=== PATIENT | male | born 1960 | race Caucasian/White ===

== ENCOUNTER 2016-12-02 10:59 | Emergency (ER) | payer OTHER ==
[~2016-12-02] VITALS: Ht 180.3 cm; Wt 88.6 kg
[~2016-12-02 10:59] MED LIST: ASPI-351 PO; COR625 PO; GLU500 PO; LIP20 PO; NIA500 PO; OMEP20TA86 PO
[2016-12-02 11:06] VITALS: BP 160/67; PULSE 75; RESP 18; O2SAT 99
[2016-12-02] MEDS ORDERED: HYDROmorphone 1 mg/mL Inj IM ONE (11:10)
--- NOTE | 2016-12-02 11:12 | ED.REPORT ---
HPI-Extremity Problem Lower Date of Service Dec 02, 2016 ED Provider: History of Present Illness: 55-year-old male here for right ankle pain. Just [employer] he fell from a 12 foot ladder. The brunt of the fall landed on his right ankle. He did not hurt anything else. He did not hit his head. He is not on blood thinners. He has been nonweightbearing on his right ankle. no Previous injuries of his ankle. No LOC. NO other musculoskeletal complaints Nursing Notes Stated Complaint: L ANKLE INJURY/ FALL Allergies: Coded Allergies: codeine (Verified Allergy, Unknown, 12/02/16) Scheduled Aspirin-Expunged Drug, Do Not Renew! (Aspirin-Expunged Drug, Do Not Renew!) 325 Mg Tablet 325 MG PO DAILY Atorvastatin-Expunged Drug, Do Not Renew! (Atorvastatin-Expunged Drug, Do Not Renew!) 20 Mg Tablet 80 MG PO HS Carvedilol-Expunged Drug, Do Not Renew! (Carvedilol-Expunged Drug, Do Not Renew! ) 6.25 Mg Tablet 6.25 MG PO BID Metformin-Expunged Drug, Do Not Renew! (Metformin-Expunged Drug, Do Not Renew!) 500 Mg Tablet 500 MG PO HS Niacin-Expunged Drug, Do Not Renew! (Niacor-Expunged Drug, Do Not Renew!) 500 Mg Tablet 500 MG PO DAILY Omeprazole-Expunged Drug, Do Not Renew! (Omeprazole-Expunged Drug, Do Not Renew! ) 20 Mg Tablet.dr 20 MG PO DAILY Scheduled PRN oxyCODONE-Acetaminophen 5-325 mg (oxyCODONE-Acetaminophen 5-325 mg) 1 Each Tablet 1-2 TAB PO Q6H PRN PRN For Pain General Time Seen by MD: 11:05 Chief Complaint Ankle injury right Hx Obtained From: Patient Arrived By: Walk-in Onset Occurred: Just prior to arrival Symptom Duration: Since onset Caused by: Fall from height... (10-20 feet) Context: Occurred at: Home injury Location: : Ankle right Severity: Current: Severe Severity: Maximum: Severe Pertinent Negative: Pt denies other symptoms Exacerbated by: Range of motion Relieved by: Rest Similar Sx Previous: No Review of Systems Review of Systems Note: denies radiculopathy/numbness/tingling Basic Review of Systems Eyes: Vision NL ENT: Hearing NL Respiratory: No shortness of breath Cardiovascular: No chest pain Psychiatric: Normal thought content Musculoskeletal: Reports: Extremity pain, Extremity swelling (R ankle) Complete sys rev & neg: except as marked. Physical Exam Initial Vital Signs Vital Signs (First) Date Time Temp Pulse Resp B/P Pulse Ox O2 Delivery O2 Flow Rate FiO2 12/02/16 11:06 75 18 160/67 99 Initial VS: Reviewed, Vital signs normal General/Constitutional: Well-developed Head / Eyes: Atraumatic Respiratory: Breath sounds normal, Clear to auscultation, No respiratory distress Cardiovascular: Regular rate & rhythm, Heart sounds normal, Intact distal pulses Upper Extremities: Vascular intact, Neuro intact, No swelling, No tenderness Skin: Warm, Dry Neurologic: Alert, Oriented, Nonfocal Psychiatric: Mood/affect normal, Behavior normal, Normal thought content Lower Extremity / Pelvis / MS: Atraumatic, Inspection NL, Full range of motion , No swelling, Non-tender, No erythema, No deformity, Neurologic intact, Vascular intact no pain with palp of the rest of his LE besides his ankle. Right Ankle: Positive: ROM reduced, Swelling present... (Moderate), Tender lat ligaments... (Ant ben-fib lig), Tenderness present... (Moderate) Right Foot: Negative: Swelling present..., Tenderness present... pedal pulse present. Pt can wiggle toes, Skin: Color NL, Warm, Dry, Intact, Turgor NL, No swelling Neurologic: Oriented X3, Speech NL, No motor deficits, No sensory deficits, CN II - XII intact Abdomen: Atraumatic, Soft, Non-tender, McBurney's non-tender, No guarding, No rebound, No distention Interpretation & Diagnostics Interpretation & Diagnostics: PROCEDURE: X-RAY RIGHT ANKLE, MINIMUM THREE VIEWS ([id number]) INDICATIONS: pain after fall TECHNIQUE: 3 views of the ankle were acquired. COMPARISON: None. FINDINGS: Bones: There is a moderately displaced comminuted fracture of the mid and anterior aspects of the calcaneus. There is mild depression of the central portion of the calcaneus. Ankle mortise is normally aligned. No suspicious bony lesions. Soft tissues: No tibiotalar joint effusion. Achilles tendon appears normal. IMPRESSION: Moderately displaced comminuted and depressed calcaneal fracture. Dictated by: Mary Lou Farnsworth M.D. on 12/02/2016 at 11:42 Approved by: Mary Lou Farnsworth M.D. on 12/02/2016 at 11:44 Procedures Splint Application - Fx Mgt Splint Application- Fx Mgt: zhang splint applied by tech. Procedure Performed by: Motor Tune Up Specialist, Under my direct supervis Precise Anatomic Location: R calcaneus Type of Immobilization: Zhang Post-Procedure / Complications: Cap refill normal Splint Post-Application Eval Extremity Condition: Cap refill < 2 sec, Distal sensation intact Re-Eval/Medical Decision Consultation : Referral / Consult Name: Bronson Lowe MD Consulted With: Orthopedic Note: discussed case with ortho, will f/u with pt in office. bulky zhang dressing advised Discharge & Departure Shift Change Sign-Out Imaging Studies: Imaging discussed Response to Therapy: Improved Impression: Primary Impression: Right calcaneal fracture Encounter type: initial encounter Calcaneus location: unspecified portion of calcaneus Fracture type: closed Fracture alignment: displaced Qualified Code: S92.001A - Unspecified fracture of right calcaneus, initial encounter for closed fracture Disposition: Home Discharge Condition All VS Reviewed: Yes Condition: Stable Patient Instructions: Calcaneal Fracture (ED) Additional Instructions: Take 800 mg ibuprofen 3 times a day for pain. Use Percocet 1-2 tablets every 4- 6 hours as needed for pain. You may apply ice to your injury as needed. You need to be nonweightbearing until seen by Ortho. Leave splint in place you may adjust the Fran wrap as needed. Return for severe pain or loss of sensation in your toe or foot. Otherwise call ortho first thing in the morning. Referrals: Oswald Pichardo MD (PCP) Bronson Lowe MD EDSupervising Provider for APC: Teetee Franklin MD copies to: Bronson Lowe MD, Linnea K ARNP Dec 02, 2016 11:11
--- NOTE | 2016-12-02 11:45 | DRSVH ---
PROCEDURE: X-RAY RIGHT ANKLE, MINIMUM THREE VIEWS ([id number]) INDICATIONS: pain after fall TECHNIQUE: 3 views of the ankle were acquired. COMPARISON: None. FINDINGS: Bones: There is a moderately displaced comminuted fracture of the mid and anterior aspects of the angel caneus. There is mild depression of the central portion of the calcaneus. Ankle mortise is normally a ligned. No suspicious bony lesions. Soft tissues: No tibiotalar joint effusion. Achilles tendon appears normal. IMPRESSION: Moderately displaced comminuted and depressed calcaneal fracture. Dictated by: Mary Lou Farnsworth M.D. on 12/02/2016 at 11:42 Approved by: Mary Lou Farnsworth M.D. on 12/02/2016 at 11:44
[2016-12-02] MEDS ORDERED: OXYC1TAB24 PO (13:10)
[2016-12-02] MEDS ORDERED: oxyCODONE-Acetamin 5-325 mg Tablet PO ONE (13:35)
[2016-12-02 13:47] VITALS: BP 159/71; PULSE 81; RESP 16; O2SAT 98
== END 2016-12-02 13:49 | disposition home or self-care (01) ==
LOC: SED 10:59
DX: S92.001A Unspecified fracture of right calcaneus, initial encounter for closed fracture (principal); W11.XXXA Fall on and from ladder, initial encounter; Y93.89 Activity, other specified; Y99.8 Other external cause status; Y92.019 Unspecified place in single-family (private) house as the place of occurrence of the external cause; I25.10 Atherosclerotic heart disease of native coronary artery without angina pectoris; E11.9 Type 2 diabetes mellitus without complications; E87.5 Hyperkalemia; K21.9 Gastro-esophageal reflux disease without esophagitis
CPT/HCPCS: 29515; 73610; 99284; J1170